=== PATIENT | female | born 1965 | race African-American/Black ===

== ENCOUNTER 2016-08-01 11:18 | Emergency (ER) | payer MEDICARE, MEDICAID ==
[~2016-08-01] VITALS: Ht 160 cm; Wt 87.0 kg
[~2016-08-01 11:18] MED LIST: ADVAIR ORI; ALBU2.5V13; ASPI-864 PO; FURO40TA5; HYDR-3933; IOHEXOL-350 100 ML BOTTLE ONE; LORA-250; LOSA25TA12 PO; MONT10TA21 PO; NITR0.4T3 SL; OMEP40CA34; ROFL500T PO; WATER FOR INJ, BACTERIOSTATIC 30ML VIAL ONE
[2016-08-01 12:43] LABS: BASOPHILS % 1.3 % (0.0-2.0); EOSINOPHILS % 2.5 % (0.0-5.0); HEMATOCRIT. 34.3 % (36.0-48.0); HEMOGLOBIN. 11.6 g/dL (12.0-16.0); LYMPHOCYTES % 44.1 % (20.0-50.0); MEAN CORPUSCULAR HGB CONC 33.9 g/dL (31.0-37.0); MEAN CORPUSCULAR VOLUME 91.5 fL (81.0-99.0); MEAN PLATELET VOLUME 9.4 fl (7.4-10.4); NEUTROPHILS % 44.1 % (40.0-76.0); PLATELET 234 x1000/uL (130-400); RED BLOOD CELL COUNT 3.75 mill/uL (4.2-5.4); RED CELL DISTRIBUTION WIDTH 13.9 % (11.6-14.6); WHITE BLOOD COUNT 6.5 x1000/uL (4.5-11.0)
[2016-08-01 13:21] LABS: CHLORIDE 105 mEq/L (98-107); INDEX HEMOLYSI 1 (1-3); INDEX ICTERIC 1 (1-4); INDEX LIPEMIC 1 (1-3)
[2016-08-01 13:24] LABS: INR 0.9; PROTHROMBIN TIME 9.8 sec
[2016-08-01 13:29] LABS: ALANINE AMINOTRANSFERASE 40 IU/L (13-61); ALBUMIN 3.7 g/dL (3.4-5.0); ANION GAP 11; CALCIUM 8.6 mg/dL (8.5-10.1); CARBON DIOXIDE 30 mEq/L (21-32); UREA NITROGEN BLOOD 13 mg/dL (7-21); eGFR > 60 mL/min (>60)
[2016-08-01] MEDS ORDERED: METHYLPREDNISOLONE SOD SUCC 125 MG/2 ML VIAL IV STA (13:32)
[2016-08-01] MEDS ORDERED: ALBUTEROL (0.083%) 2.5MG/3ML NEB HHN STA (13:32)
[2016-08-01] MEDS ORDERED: IPRATROPIUM BROMIDE (0.02%) 0.5MG/2.5ML NEB HHN STA (13:32)
[2016-08-01] MEDS ORDERED: ALBUTEROL (0.5%) 2.5MG/0.5ML NEB HHN ONE (13:46)
[2016-08-01] MEDS ORDERED: SODIUM CHLORIDE 0.9% 1,000 ML IV ONE (14:40)
[2016-08-01] MEDS ORDERED: KETOROLAC 30MG/ML VIAL IV ONE (15:00)
[2016-08-01] MEDS ORDERED: METOCLOPRAMIDE HCL 10MG/2ML VIAL IV ONE (15:00)
[2016-08-01 15:47] VITALS: BP 133/86
== END 2016-08-01 16:27 | disposition home or self-care (01) ==
LOC: ER 12:53
DX: R51 Headache (principal); M54.2 Cervicalgia; M25.512 Pain in left shoulder; E11.9 Type 2 diabetes mellitus without complications; I10 Essential (primary) hypertension; J44.9 Chronic obstructive pulmonary disease, unspecified; J45.909 Unspecified asthma, uncomplicated
CPT/HCPCS: 36415; 70496; 80053; 85025; 85610; 96361; 96374; 96375; 99285; J1885; J2765; Q9967; J7030; J7611

== ENCOUNTER 2016-11-28 13:40 | Emergency (ER) | payer MEDICARE, MEDICAID ==
[~2016-11-28] VITALS: Ht 160 cm; Wt 88.0 kg
[~2016-11-28 13:40] MED LIST changes: -IOHEXOL-350 100 ML BOTTLE ONE; -WATER FOR INJ, BACTERIOSTATIC 30ML VIAL ONE
[2016-11-28] MEDS ORDERED: ONDANSETRON HCL 4MG/2ML VIAL IV STA (14:38)
[2016-11-28] MEDS ORDERED: MORPHINE SULFATE 4 MG/ML CPJ (NOT FOR IM USE) IV STA (14:38)
[2016-11-28] MEDS ORDERED: IPRATROPIUM BROMIDE (0.02%) 0.5MG/2.5ML NEB HHN STA (14:52)
[2016-11-28] MEDS ORDERED: ALBUTEROL (0.083%) 2.5MG/3ML NEB HHN STA (14:52)
[2016-11-28 15:27] LABS: BASOPHILS % 0.4 % (0.0-2.0); EOSINOPHILS % 1.6 % (0.0-5.0); HEMATOCRIT. 35.1 % (36.0-48.0); HEMOGLOBIN. 11.6 g/dL (12.0-16.0); LYMPHOCYTES % 38.1 % (20.0-50.0); MEAN CORPUSCULAR VOLUME 93.5 fL (81.0-99.0); MEAN PLATELET VOLUME 9.1 fl (7.4-10.4); MONOCYTES % 7.7 % (2.0-8.0); NEUTROPHILS % 52.2 % (40.0-76.0); PLATELET 215 x1000/uL (130-400); RED BLOOD CELL COUNT 3.75 mill/uL (4.2-5.4); RED CELL DISTRIBUTION WIDTH 14.3 % (11.6-14.6)
[2016-11-28 15:30] LABS: PROTHROMBIN TIME 9.9 sec
[2016-11-28 15:40] LABS: CARBON DIOXIDE 30 mEq/L (21-32); CHLORIDE 105 mEq/L (98-107); TROPONIN I < 0.02 ng/mL (0.00-0.04)
[2016-11-28] MEDS ORDERED: MORPHINE SULFATE 4 MG/ML CPJ (NOT FOR IM USE) IV ONE (17:30)
[2016-11-28] MEDS ORDERED: DIAZEPAM 5 MG TABLET PO ONE (17:30)
[2016-11-28] MEDS ORDERED: KETOROLAC 30MG/ML VIAL IV ONE (17:30)
[2016-11-28 20:23] VITALS: BP 126/70
== END 2016-11-28 20:26 | disposition home or self-care (01) ==
LOC: ER 14:51
DX: M54.12 Radiculopathy, cervical region (principal); M54.16 Radiculopathy, lumbar region; J44.9 Chronic obstructive pulmonary disease, unspecified; M54.30 Sciatica, unspecified side; M19.90 Unspecified osteoarthritis, unspecified site; J45.909 Unspecified asthma, uncomplicated; E11.9 Type 2 diabetes mellitus without complications; I10 Essential (primary) hypertension
CPT/HCPCS: 36415; 71010; 80053; 83880; 84484; 85025; 85610; 93005; 94640; 96374; 96375; 96376; 99285; J1885; J2270; J2405; J7611

== ENCOUNTER 2017-01-09 13:44 | Emergency (ER) | payer MEDICARE, MEDICAID ==
[~2017-01-09] VITALS: Ht 160 cm; Wt 90.0 kg
[~2017-01-09 13:44] MED LIST changes: -HYDR-3933; +HYDR-4009; -NITR0.4T3 SL; +NITR0.4T49 SL
[2017-01-09 13:52] VITALS: BP 138/78
[2017-01-09] MEDS ORDERED: CYCLOBENZAPRINE 10MG TABLET PO ONE (14:45)
[2017-01-09] MEDS ORDERED: KETOROLAC 60MG/2ML VIAL IM ONE (14:45)
== END 2017-01-09 17:50 | disposition home or self-care (01) ==
LOC: ER 14:47
DX: M54.2 Cervicalgia (principal); M54.5 Low back pain; M25.551 Pain in right hip; M19.90 Unspecified osteoarthritis, unspecified site; J44.9 Chronic obstructive pulmonary disease, unspecified; E11.9 Type 2 diabetes mellitus without complications; I10 Essential (primary) hypertension; M54.30 Sciatica, unspecified side; Z79.82 Long term (current) use of aspirin; V73.6XXA Passenger on bus injured in collision with car, pick-up truck or van in traffic accident, initial encounter; Y93.89 Activity, other specified; Y92.488 Other paved roadways as the place of occurrence of the external cause
CPT/HCPCS: 72100; 73502; 96372; 99284; J1885

== ENCOUNTER 2017-03-11 21:11 | Emergency (ER) | payer MEDICARE, MEDICAID ==
[~2017-03-11] VITALS: Ht 160 cm; Wt 89.0 kg
[2017-03-11] MEDS ORDERED: ASPIRIN 81MG TABLET PO ONE (23:00)
[2017-03-11] MEDS ORDERED: MORPHINE SULFATE 4 MG/ML CPJ (NOT FOR IM USE) IV STA (23:00)
[2017-03-11] MEDS ORDERED: ONDANSETRON HCL 4MG/2ML VIAL IV STA (23:00)
[2017-03-11] MEDS ORDERED: MORPHINE SULFATE 10 MG/ML CPJ IV NR (23:30)
[2017-03-11 23:41] LABS: BASOPHILS % 0.6 % (0.0-2.0); EOSINOPHILS % 3.4 % (0.0-5.0); HEMATOCRIT. 35.3 % (36.0-48.0); HEMOGLOBIN. 11.8 g/dL (12.0-16.0); MEAN CORPUSCULAR HEMOGLOBIN 31.3 pg (28.0-32.0); MEAN CORPUSCULAR VOLUME 93.5 fL (81.0-99.0); MEAN PLATELET VOLUME 9.3 fl (7.4-10.4); PLATELET 211 x1000/uL (130-400); RED BLOOD CELL COUNT 3.77 mill/uL (4.2-5.4); RED CELL DISTRIBUTION WIDTH 14.5 % (11.6-14.6)
[2017-03-12 00:05] LABS: CARBON DIOXIDE 30 mEq/L (21-32); CHLORIDE 104 mEq/L (98-107); D-DIMER 0.33 mg/L FEU (<0.50); ETHANOL BLOOD < 10 mg/dL; INR 0.9; PROTHROMBIN TIME 9.8 sec (9.4-11.6); TROPONIN I < 0.02 ng/mL (0.00-0.04)
[2017-03-12 01:07] LABS: *AMPHETAMINES SCREEN URINE NEGATIVE (NEGATIVE); *BARBITURATES SCREEN URINE NEGATIVE (NEGATIVE); *BENZODIAZEPINES SCREEN URINE NEGATIVE (NEGATIVE); *COCAINE SCREEN URINE NEGATIVE (NEGATIVE); CANNABINOID URINE SCREEN NEGATIVE (NEGATIVE); METHADONE URINE SCREEN NEGATIVE (NEGATIVE); OPIATES URINE SCREEN PRESUMTIVE POSITIVE (NEGATIVE); PHENCYCLIDINE URINE SCREEN NEGATIVE (NEGATIVE)
[2017-03-12] MEDS ORDERED: TRAMADOL 50MG TABLET PO ONE (01:45)
[2017-03-12 02:41] VITALS: BP 131/83
== END 2017-03-12 02:44 | disposition home or self-care (01) ==
LOC: ER 03-12 00:18
DX: R07.9 Chest pain, unspecified (principal); F15.10 Other stimulant abuse, uncomplicated; S63.91XA Sprain of unspecified part of right wrist and hand, initial encounter; Y92.9 Unspecified place or not applicable; Y93.9 Activity, unspecified; X58.XXXA Exposure to other specified factors, initial encounter; I25.10 Atherosclerotic heart disease of native coronary artery without angina pectoris; E11.9 Type 2 diabetes mellitus without complications; I10 Essential (primary) hypertension; Z79.82 Long term (current) use of aspirin; Z87.891 Personal history of nicotine dependence
CPT/HCPCS: 36415; 71010; 73130; 80053; 80305; 83690; 83880; 84484; 85025; 85379; 85610; 93005; 96374; 96375; 99285; G0482; J2270; J2405

== ENCOUNTER 2017-05-30 08:40 | Emergency (ER) | payer MEDICARE, MEDICAID ==
[~2017-05-30] VITALS: Ht 160 cm; Wt 91.0 kg
[2017-05-30] MEDS ORDERED: IPRATROPIUM BROMIDE (0.02%) 0.5MG/2.5ML NEB HHN STA (12:53)
[2017-05-30] MEDS ORDERED: METHYLPREDNISOLONE SOD SUCC 125 MG/2 ML VIAL IV STA (12:53)
[2017-05-30] MEDS ORDERED: ALBUTEROL (0.083%) 2.5MG/3ML NEB HHN STA (12:53)
[2017-05-30 14:31] VITALS: BP 133/84
== END 2017-05-30 14:33 | disposition home or self-care (01) ==
LOC: ER 09:46
DX: J45.909 Unspecified asthma, uncomplicated (principal); R06.2 Wheezing; R05 Cough; I25.10 Atherosclerotic heart disease of native coronary artery without angina pectoris; E11.9 Type 2 diabetes mellitus without complications; Z79.82 Long term (current) use of aspirin; I10 Essential (primary) hypertension
CPT/HCPCS: 71045; 94640; 96374; 99284; J2930; J7611

== ENCOUNTER 2017-07-18 05:16 | Day surgery (SDC) | payer MEDICARE, MEDICAID ==
[~2017-07-18] VITALS: Ht 160 cm; Wt 89.8 kg
[~2017-07-18 05:16] MED LIST changes: +EXEN2VIA SQ; +GABA-531 PO; +HYDR-2510 PO
[2017-07-18] MEDS ORDERED: SODIUM CHLORIDE 0.9% 1,000 ML IV SCH (06:05)
[2017-07-18] MEDS ORDERED: BUPIVACAINE HCL/PF 0.25% (2.5MG/ML) 10ML ONE ×2 (06:58→06:59)
[2017-07-18] MEDS ORDERED: FENTANYL CITRATE/PF 50MCG/ML 2ML VIAL ONE ×2 (07:37→09:16)
[2017-07-18] MEDS ORDERED: PROPOFOL 200MG/20ML VIAL IV ONE (07:38)
[2017-07-18] MEDS ORDERED: MIDAZOLAM HCL 2 MG/2 ML VIAL ONE (07:38)
[2017-07-18] MEDS ORDERED: LIDOCAINE HCL/PF 1% 10 MG/ML 5ML VIAL ONE (07:40)
[2017-07-18] MEDS ORDERED: MEPERIDINE HCL/PF 25MG/ML CPJ IV PRN (09:00)
[2017-07-18] MEDS ORDERED: LABETALOL 5MG/ML SYR 20 MG/4 ML SYRINGE IV PRN (09:00)
[2017-07-18] MEDS ORDERED: HYDROMORPHONE HCL/PF 2MG/ML CPJ IV PRN (09:00)
[2017-07-18] MEDS ORDERED: ONDANSETRON HCL 4MG/2ML VIAL IV PRN ×2 (09:00→10:15)
[2017-07-18] MEDS ORDERED: NALOXONE HCL 0.4 MG/ML 1ML VIAL ONE (09:26)
[2017-07-18] MEDS ORDERED: HYDROCODONE/ACETAMINOPHEN 10/325MG TABLET PO PRN (10:15)
[2017-07-18] MEDS ORDERED: IPRATROPIUM/ALBUTEROL 0.5-3(2.5)MG/3ML NEB HHN NR (10:24)
[2017-07-18 10:26] VITALS: BP 150/96
== END 2017-07-18 11:35 | disposition home or self-care (01) ==
LOC: OR 05:16
PROVIDERS: ATTEND Orthopaedic Surgery
DX: G56.02 Carpal tunnel syndrome, left upper limb (principal); M65.332 Trigger finger, left middle finger; E11.9 Type 2 diabetes mellitus without complications; E78.00 Pure hypercholesterolemia, unspecified; G62.9 Polyneuropathy, unspecified; I10 Essential (primary) hypertension; M19.90 Unspecified osteoarthritis, unspecified site; D64.89 Other specified anemias; G43.909 Migraine, unspecified, not intractable, without status migrainosus; F17.210 Nicotine dependence, cigarettes, uncomplicated; M54.30 Sciatica, unspecified side; Z79.82 Long term (current) use of aspirin; Z98.890 Other specified postprocedural states; Z79.01 Long term (current) use of anticoagulants; Z79.899 Other long term (current) drug therapy; G47.30 Sleep apnea, unspecified; K21.9 Gastro-esophageal reflux disease without esophagitis; F41.9 Anxiety disorder, unspecified; J45.998 Other asthma
CPT/HCPCS: 26055; 64721; 82962; 94640; J2175; J2250; J2405; J3010; J3490; J7030; J7620; J2310; J2704

== ENCOUNTER 2017-08-21 17:50 | Emergency (ER) | payer MEDICARE, MEDICAID ==
[~2017-08-21] VITALS: Ht 160 cm; Wt 86.0 kg
[2017-08-21 18:39] VITALS: BP 126/69
== END 2017-08-21 22:10 | disposition left against medical advice (07) ==
LOC: ER 17:50
DX: M79.642 Pain in left hand (principal); J45.909 Unspecified asthma, uncomplicated; I25.10 Atherosclerotic heart disease of native coronary artery without angina pectoris; I10 Essential (primary) hypertension; E11.9 Type 2 diabetes mellitus without complications; Z79.82 Long term (current) use of aspirin
CPT/HCPCS: 99281

== ENCOUNTER → 2019-06-13 | Emergency (ER) | payer MEDICARE, MEDICAID ==
[~2019-06-13] VITALS: Ht 160 cm; Wt 90.0 kg
[~2019-06-13] MED LIST changes: -LOSA25TA12 PO; +LOSA25TA26 PO; +OMEP40CA12; -OMEP40CA34
[2019-06-13 15:15] VITALS: BP 106/86
== END | disposition home or self-care (01) ==
LOC: ER 14:35
DX: J45.909 Unspecified asthma, uncomplicated (principal); R07.9 Chest pain, unspecified; Z53.21 Procedure and treatment not carried out due to patient leaving prior to being seen by health care provider
CPT/HCPCS: 93005

== ENCOUNTER 2024-10-18 04:46 | Emergency (ER) | payer MEDICARE, MEDICAID ==
[~2024-10-18] VITALS: Ht 165.1 cm; Wt 61.0 kg
[~2024-10-18 04:46] MED LIST changes: +GABA-1180 PO; -GABA-531 PO; -HYDR-2510 PO; +HYDR50TA PO; +MONT-46 PO; -MONT10TA21 PO; -OMEP40CA12; +OMEP40CA20; +ONDA4TAB5 MT; +PROT20 MT
[2024-10-18 04:59] VITALS: O2SAT 100
[2024-10-18] MEDS ORDERED: BENZ100C86 MT (06:10)
[2024-10-18 06:18] VITALS: BP 150/69; PULSE 60; RESP 18; TEMP 36.6; O2SAT 100
== END 2024-10-18 06:42 | disposition home or self-care (01) ==
LOC: ER 04:46
DX: R05.9 Cough, unspecified (principal); E11.9 Type 2 diabetes mellitus without complications; E78.5 Hyperlipidemia, unspecified; J44.89 Other specified chronic obstructive pulmonary disease; I10 Essential (primary) hypertension; Z79.899 Other long term (current) drug therapy; Z98.84 Bariatric surgery status
CPT/HCPCS: 71045; 99283

== ENCOUNTER 2024-11-27 05:47 | Emergency (ER) | payer MEDICARE, MEDICAID ==
[~2024-11-27] VITALS: Ht 157.5 cm; Wt 61.4 kg
[~2024-11-27 05:47] MED LIST changes: +BENZ100C86 MT
[2024-11-27 05:53] VITALS: TEMP 36.7; O2SAT 99
[2024-11-27] MEDS: FAMOTIDINE 20MG TABLET PO ONE (06:19)
[2024-11-27] MEDS: MAGNESIUM/ALUMINUM HYDROXIDE/SIMETHICONE 30ML UDC PO ONE (06:19)
[2024-11-27] MEDS: ONDANSETRON 4MG ODT PO ONE (06:19)
[2024-11-27 07:45] LABS: BASOPHILS % 0.4 % (0.0-2.0); EOSINOPHILS % 1.7 % (0.0-5.0); HEMATOCRIT. 32.3 % (36.0-48.0); HEMOGLOBIN. 10.8 g/dL (12.0-16.0); LYMPHOCYTES % 41.3 % (20.0-50.0); MEAN PLATELET VOLUME 8.8 fl (7.4-10.4); MONOCYTES % 7.9 % (2.0-8.0); NEUTROPHILS % 48.7 % (40.0-76.0); PLATELET 226 x1000/uL (130-400); RED BLOOD CELL COUNT 3.46 mill/uL (4.2-5.4); RED CELL DISTRIBUTION WIDTH 14.2 % (11.6-14.6)
[2024-11-27 08:08] LABS: CREATININE 0.8 mg/dL (0.6-1.0); UREA NITROGEN BLOOD 13 mg/dL (9-23)
[2024-11-27 08:10] LABS: ASPARTATE AMINOTRANSFERASE 23 IU/L (<34); BILIRUBIN DIRECT 0.3 mg/dL (<=3.0); BILIRUBIN TOTAL 0.8 mg/dL (0.1-1.0)
[2024-11-27 08:11] LABS: PROTEIN TOTAL 6.7 g/dL (6.0-8.3)
[2024-11-27 08:34] LABS: CLARITY URINE CLEAR (CLEAR); COLOR URINE YELLOW (YELLOW); GLUCOSE URINE NEGATIVE (NEGATIVE); KETONES URINE NEGATIVE (NEGATIVE); LEUKOCYTE ESTERASE URINE NEGATIVE (NEGATIVE); NITRITE URINE NEGATIVE (NEGATIVE); OCCULT BLOOD URINE NEGATIVE (NEGATIVE); PH URINE 7.0 (4.5-8.0); PROTEIN URINE NEGATIVE (NEGATIVE); SPECIFIC GRAVITY URINE 1.019 (1.005-1.030); UROBILINOGEN URINE 0.2 E.U./dL (0.2-1.0)
[2024-11-27] MEDS ORDERED: FAMO-134 MT (08:44)
[2024-11-27 09:04] VITALS: BP 144/97; PULSE 58; RESP 18; O2SAT 100
== END 2024-11-27 09:05 | disposition home or self-care (01) ==
LOC: ER 06:17
DX: R10.12 Left upper quadrant pain (principal); R10.13 Epigastric pain; E11.9 Type 2 diabetes mellitus without complications; E78.5 Hyperlipidemia, unspecified; I10 Essential (primary) hypertension; J44.89 Other specified chronic obstructive pulmonary disease; Z79.51 Long term (current) use of inhaled steroids; Z79.82 Long term (current) use of aspirin; Z79.899 Other long term (current) drug therapy; Z90.710 Acquired absence of both cervix and uterus; Z98.84 Bariatric surgery status
CPT/HCPCS: 99284; 74176; 80076; 80048; 81003; 83690; 85025; 36415; 93005; Q0162